=== PATIENT | male | born 1960 | race Caucasian/White ===

== ENCOUNTER 2016-12-21 22:40 | Observation (INO) | payer MEDICARE ==
[2016-12-21] VITALS (7 sets, daily range): BP systolic 124–153; BP diastolic 71–91; PULSE 70–85; RESP 16–18; TEMP 99.3; O2SAT 95–97
[~2016-12-21] VITALS: Ht 177.8 cm; Wt 82.0 kg
[~2016-12-21 22:40] MED LIST: ALBU1AER INH; ALBU8I INH; HYDR-3535 PO; LORTA10 PO; MEDR4PAK3 PO; TIZA4 PO
--- NOTE | 2016-12-21 22:45 | PD ---
Physical Exam Date Seen by Provider: Dec 21, 2016 Time Seen by Provider: 22:43 Narrative 56 yo male here for left sided chest pain. Was going to be seen by a specialist but has not been able to get a referral. Has had chest pains on/off for a month. No history of ACS. SOB with pain. PCP is aware but has not been able to send patient to director of career services. Diaphoresis per patient. Vitals are stable in triage. Awaiting Bed placement. Data Data Last Documented VS Vital Signs Date Time Temp Pulse Resp B/P Pulse Ox O2 Delivery O2 Flow Rate FiO2 12/21/16 22:42 99.3 75 16 153/87 97 Room Air [facility] Medical Record Reviewed: Yes Supervised Visit with FRANKIE: No Lupillo Cordero Dec 21, 2016 22:45
[2016-12-21] MEDS ORDERED: SODIUM CHLORID 0.9% 500 ML INJ 500 ML IV ONE (23:15)
[2016-12-21] MEDS ORDERED: ASPIRIN 81 MG CHEW TAB PO ONE (23:15)
[2016-12-21] MEDS ORDERED: SODIUM CHLORIDE 0.9% FLUSH 10 ML FLUSH IVF PRN (23:15)
[2016-12-21] MEDS: NITROGLYCERIN 0.4 MG SL 25 TABS/BTL SL SCH ×3 (23:31→23:48)
[2016-12-21 23:37] LABS: AUTOMATED NEUTROPHIL # 8.8 TH/MM3 (1.8-7.7); BASOPHIL # 0.1 TH/MM3 (0-0.2); BASOPHIL % 0.9 % (0.0-2.0); EOSINOPHIL # 0.1 TH/MM3 (0-0.4); EOSINOPHIL % 0.7 % (0.0-4.0); HEMATOCRIT 42.6 % (39.0-51.0); HEMO FLAGS DIFF FINAL; LYMPH % 23.3 % (9.0-44.0); LYMPHOCYTE # 3.1 TH/MM3 (1.0-4.8); MEAN CELL VOLUME 92.9 FL (80.0-100.0); MEAN CORPUSCULAR HEMOGLOBIN 32.3 PG (27.0-34.0); MEAN CORPUSCULAR HGB CONC 34.8 % (32.0-36.0); MONO % 7.8 % (0.0-8.0); NEUT % 67.3 % (16.0-70.0); PLATELET COUNT 226 TH/MM3 (150-450); RED BLOOD COUNT 4.59 MIL/MM3 (4.50-5.90); RED CELL DISTRIBUTION WIDTH 13.6 % (11.6-17.2); WHITE BLOOD COUNT 13.1 TH/MM3 (4.0-11.0)
--- NOTE | 2016-12-21 23:46 | RADRPT ---
EXAM DATE/TIME: 12/21/2016 23:16 [facility] COMPARISON: No previous studies available for comparison. INDICATIONS : Chest pain. MEDICAL HISTORY : None. SURGICAL HISTORY : Right total shoulder replacement ENCOUNTER: Initial ACUITY: 1 day PAIN SCORE: 7/10 LOCATION: Bilateral chest FINDINGS: No infiltrate, effusion or pneumothorax demonstrated. There is evidence of upper lobe predominant emp hysema. Heart size within normal limits. CONCLUSION: No evidence of acute cardiopulmonary disease. Trent Borges MD on December 21, 2016 at 23:44 Board Certified Radiologist. This report was verified electronically.
[2016-12-21 23:50] LABS: APTT (PATIENT) 26.7 SEC (24.3-30.1); INTERNATIONAL NORMALIZED RATIO 0.9 RATIO; PROTHROMBIN TIME - PATIENT 10.2 SEC (9.8-11.6)
[2016-12-21 23:59] LABS: ANION GAP 9 MEQ/L (5-15); AST (GOT) 21 U/L (15-37); BICARBONATE 24.2 MEQ/L (21.0-32.0); BLOOD UREA NITROGEN 19 MG/DL (7-18); CHLORIDE 109 MEQ/L (98-107); GLOMERULAR FILTRATION RATE 82 ML/MIN (>89); POTASSIUM 3.7 MEQ/L (3.5-5.1); SODIUM (NA) 142 MEQ/L (136-145)
[2016-12-22] LABS: ALT (GPT) 31 U/L (12-78)
[2016-12-22 00:04] LABS: ALKALINE PHOSPHATASE 67 U/L (45-117); TOTAL BILIRUBIN ADULT 0.5 MG/DL (0.2-1.0)
[2016-12-22] MEDS ORDERED: ACETAMINOPHEN 325 MG TAB PO ONE (00:15)
[2016-12-22 00:23] VITALS: BP 122/62; PULSE 77; RESP 17; O2SAT 95
[2016-12-22] MEDS ORDERED: MULTTAB68 PO (00:30)
[2016-12-22] MEDS ORDERED: HYDR-3583 PO (00:30)
[2016-12-22] MEDS ORDERED: VENTAER INH (00:30)
--- NOTE | 2016-12-22 00:50 | PD ---
HPI Chief Complaint: Chest Pain Time Seen by Provider: 23:03 Travel History International Travel<30 days: No Contact w/Intl Traveler<30days: No Traveled to known affect area: No History of Present Illness HPI So 56 old man who presents to the emergency department complaining of chest pain. Symptoms been intermittent for a month or so but getting steadily worse. He states today he states symptoms were severe. They're mostly over the left chest, but today started radiating into the left arm. They seem to be worse with exertion. There little bit pleuritic. He denies any previous history of heart problems. He's had a stress test before, but it was in the remote past. He saw his primary doctor is referring the freight flagman but he has not been able to get in to see them yet. His a history of some indigestion and reflux and is been a little bit worse recently. No history of gallbladder problems. No other complaints. History Past Medical History Narrative Medical Hyperlipidemia Asthma Tetanus Vaccination: < 5 Years Social History Alcohol Use: Yes (occasionally) Tobacco Use: Yes (2-3 ppd) Allergies-Medications (Allergen,Severity, Reaction): Coded Allergies: Flu Vaccine (Verified Allergy, Severe, HIVES, 12/21/16) Penicillin (Verified Allergy, Severe, HIVES, 12/21/16) Reported Meds & Prescriptions Reported Meds & Active Scripts Active Reported Psy-Dpxedw-Mlvzn (Multivitamin) 1 Each Tablet 1 Tab PO DAILY Ventolin Hfa 18 GM Inh (Albuterol Sulfate) 90 Mcg/Act Aer 2 Puff INH Q4-6H PRN Hydrocodone-Acetaminophen 10-325 mg Tab 1 Tab PO Q6H PRN Review of Systems Except as stated in HPI: all other systems reviewed are Neg Physical Exam Narrative GENERAL: Well-appearing 56 old man, no acute distress. SKIN: Focused skin assessment warm/dry. HEAD: Atraumatic. Normocephalic. EYES: Pupils equal and round. No scleral icterus. No injection or drainage. ENT: No nasal bleeding or discharge. Mucous membranes pink and moist. NECK: Trachea midline. No JVD. CARDIOVASCULAR: Regular rate and rhythm. No murmur appreciated. RESPIRATORY: No accessory muscle use. Clear to auscultation. Breath sounds equal bilaterally. GASTROINTESTINAL: Abdomen soft, non-tender, nondistended. Hepatic and splenic margins not palpable. MUSCULOSKELETAL: No obvious deformities. No clubbing. No cyanosis. No edema. NEUROLOGICAL: Awake and alert. No obvious cranial nerve deficits. Motor grossly within normal limits. Normal speech. PSYCHIATRIC: Appropriate mood and affect; insight and judgment normal. Data Data Last Documented VS Vital Signs Date Time Temp Pulse Resp B/P Pulse Ox O2 Delivery O2 Flow Rate FiO2 12/22/16 00:23 77 17 122/62 95 Room Air 12/21/16 22:42 99.3 Orders Electrocardiogram (12/21/16 23:) Complete Blood Count With Diff (12/21/16 23:11) Comprehensive Metabolic Panel (12/21/16 23:11) Magnesium (Mg) (12/21/16 23:) Prothrombin Time / Inr (Pt) (12/21/16:) Act Partial Throm Time (Ptt) (12/21/16 23:11) Troponin I (12/21/16 23:11) Chest, Single Ap (12/21/16 23:11) Ecg Monitoring (12/21/16 23:11) Bilateral Bp Monitoring (12/21/16:) Iv Access Insert/Monitor (12/21/16 23:) Oximetry (12/21/16 23:11) Oxygen Administration (12/21/16 23:11) Aspirin Chew (Aspirin Chew) (12/21/16 23:15) Sodium Chloride 0.9% Flush (Ns Flush) (12/21/16 23:15) Nitroglycerin Sl (Nitrostat Sl) (12/21/16 23:15) Sodium Chlorid 0.9% 500 Ml Inj (Ns 500 M (12/21/16 23:15) Acetaminophen (Tylenol) (12/22/16 00:15) Labs Laboratory Tests Test 12/21/16 23:25 White Blood Count 13.1 TH/MM3 Red Blood Count 4.59 MIL/MM3 Hemoglobin 14.8 GM/DL Hematocrit 42.6 % Mean Corpuscular Volume 92.9 FL Mean Corpuscular Hemoglobin 32.3 PG Mean Corpuscular Hemoglobin 34.8 % Concent Red Cell Distribution Width 13.6 % Platelet Count 226 TH/MM3 Mean Platelet Volume 8.5 FL Neutrophils (%) (Auto) 67.3 % Lymphocytes (%) (Auto) 23.3 % Monocytes (%) (Auto) 7.8 % Eosinophils (%) (Auto) 0.7 % Basophils (%) (Auto) 0.9 % Neutrophils # (Auto) 8.8 TH/MM3 Lymphocytes # (Auto) 3.1 TH/MM3 Monocytes # (Auto) 1.0 TH/MM3 Eosinophils # (Auto) 0.1 TH/MM3 Basophils # (Auto) 0.1 TH/MM3 CBC Comment DIFF FINAL Differential Comment Prothrombin Time 10.2 SEC Prothromb Time International 0.9 RATIO Ratio Activated Partial 26.7 SEC Thromboplast Time Sodium Level 142 MEQ/L Potassium Level 3.7 MEQ/L Chloride Level 109 MEQ/L Carbon Dioxide Level 24.2 MEQ/L Anion Gap 9 MEQ/L Blood Urea Nitrogen 19 MG/DL Creatinine 0.96 MG/DL Estimat Glomerular Filtration 82 ML/MIN Rate Random Glucose 107 MG/DL Calcium Level 8.5 MG/DL Magnesium Level 2.0 MG/DL Total Bilirubin 0.5 MG/DL Aspartate Amino Transf 21 U/L (AST/SGOT) Alanine Aminotransferase 31 U/L (ALT/SGPT) Alkaline Phosphatase 67 U/L Troponin I LESS THAN 0.02 NG/ML Total Protein 6.4 GM/DL Albumin 3.5 GM/DL [facility] Medical Decision Making Medical Screen Exam Complete: Yes Emergency Medical Condition: Yes Interpretation(s) My review of EKG: Normal sinus rhythm at a rate of 75, little bit a left axis deviation with an incomplete right bundle, no definite evidence of acute ischemia. LABS: CBC remarkable for mild leukocytosis. CMP is generally unremarkable. BUN is a little bit elevated. Troponin negative. Coags unremarkable. Chest x-ray negative Differential Diagnosis ACS, GERD, reflux, pleurisy, PE, dissection, other Narrative Course Medical decision-making 56-year-old man who presents to the emergency department complaining of intermittent chest pain is worse over the past month or so. Symptoms are moderately concerning for ACS with exertional component, gradually worsening. Overall he looks well. His EKG is nondiagnostic. Initial troponin is negative. We'll recommend admission to the chest pain Center. Diagnosis Primary Impression: Chest pain Admitting Information Admitting Physician Requests: Dewayne Mg MD Dec 22, 2016 00:49
[2016-12-22] MEDS ORDERED: SODIUM CHLORIDE 0.9% FLUSH 10 ML FLUSH IV FLUSH PRN (01:00)
[2016-12-22 01:58] VITALS: BP 113/66
[2016-12-22 02:56] VITALS: PULSE 64
[2016-12-22 03:06] VITALS: BP 121/71; PULSE 68; RESP 18; TEMP 97.9; O2SAT 98
[2016-12-22 03:18] LABS: CREATINE KINASE 138 U/L (39-308)
[2016-12-22 03:30] LABS: CKMB 1.1 NG/ML (0.5-3.6)
[2016-12-22] MEDS ORDERED: ALBUTEROL SULFATE 90 MCG/ACT HFA 18 GM INHALER INH PRN (03:30)
[2016-12-22 06:56] LABS: CREATINE KINASE 131 U/L (39-308)
[2016-12-22 07:10] LABS: CKMB 0.9 NG/ML (0.5-3.6)
[2016-12-22] MEDS ORDERED: NITROGLYCERIN 0.4 MG SL 25 TABS/BTL SL PRN (07:30)
[2016-12-22] MEDS ORDERED: ONDANSETRON HCL 4 MG/2 ML VIAL IV PRN (07:30)
[2016-12-22] MEDS ORDERED: ACETAMINOPHEN 500 MG CPLT PO PRN (07:30)
[2016-12-22 08:00] VITALS: BP 116/75; PULSE 69; PULSE 73; RESP 20; TEMP 96.3; O2SAT 97; O2SAT 98
[2016-12-22] MEDS ORDERED: RESP: ALBUTEROL 2.5 MG/IPRATROPIUM 0.5 MG NEB (SCH) NEB ONE (08:00)
[2016-12-22] MEDS ORDERED: RESP: ALBUTEROL 2.5 MG/3 ML NEB (PRN) NEB (08:00)
[2016-12-22] MEDS: RESP: ALBUTEROL 2.5 MG/3 ML NEB (SCH) INH ×2 (08:00→12:36)
--- NOTE | 2016-12-22 08:00 | HHI.HP ---
[facility] Primary Care Physician Dr. Braga Chief Complaint Chest pain History of Present Illness 56-year-old patient with history of asthma presents to emergency room for further evaluation of chest pain. Onset over one month ago. Location left anterior chest. Characterized as sharp. Duration constant waxing and waning in intensity. Radiation to left arm stating "my left arm was tingling." Associated symptoms include diaphoresis and it "hurts to take a deep breath." No nausea or vomiting. No known precipitating factors. Relieving factor laying down and resting. States he spoke his primary doctor regarding chest discomfort and is waiting for a specialist, although he is unsure what type specialist. Yesterday's chest pain episode more severe, therefore he came to the emergency room for further evaluation. Also state he has been using albuterol rescue inhaler every 1-2 hours for over a month and has not told primary care provider on his frequent use. Continues to smoke 13 pack daily. Review of Systems General: No fatigue,weakness, fever, chills, recent illness, or change in appetite. Other than what is stated above has been in his normal state of health including chronic back pain. HEENT: Reports daily severe frontal headache for 3 months. No current EARL. Reports dysphasia "for a long time" chokes on pills and certain foods, no apparent problem with liquids. No vision changes, no nasal congestion or drainage. Also reports one year of intermittent right temporal and right neck pain. States he has reported problem to his PCP and is waiting for an ENT appointment. CV: As stated above. Chest pain reproducible upon palpation. No palpitations or dizziness. RESP: Hurts to take a deep breath. No current SOB. Reports using his rescue inhaler 1-2 hours/daily over one month when he feels short of breath or wheezes. Denies hemoptysis. History of asthma since age 7. Follows with a parachute taper. Reports he has not told primary care provider or parachute taper about his frequent use of rescue inhalers. After education provided, patient endorses he cannot tolerate inhaled corticosteroids or any other long-acting inhaler. GI: No nausea, vomiting, bowel changes, or diarrhea. Intermittent chronic constipation he relates to pain medications. No pain, distention, melena, or blood in the stool. No unintentional weight gain or weight loss. : No dysuria, urgency, frequency, hematuria, or history of kidney stones EXT: No dependent edema. MS: Chronic low back pain, follows with pain management. Receives epidural injections routinely. Bilateral lower leg chronic "shooting pain related to my back." No change in his chronic back pain or ROM. NEURO: No change in memory, dizziness, difficulty with balance, LOC, motor/ sensory deficits PSYCH: No anxiety, depression, or suicidal ideation. Reports situational stress regarding chronic back pain. SKIN: No rashes, no concerning lesions Past Family Social History Allergies: Coded Allergies: Flu Vaccine (Verified Allergy, Severe, HIVES, 12/21/16) Penicillin (Verified Allergy, Severe, HIVES, 12/21/16) Past Medical History Asthma, chronic low back pain, sleep apnea (dose not wear CPAP mask as ordered, states he sent machine back) Past Surgical History Tonsillectomy, right shoulder surgery Reported Medications Active Reported Dfu-Udxunk-Xvlci (Multivitamin) 1 Each Tablet 1 Tab PO DAILY Ventolin Hfa 18 GM Inh (Albuterol Sulfate) 90 Mcg/Act Aer 2 Puff INH Q4-6H PRN Hydrocodone-Acetaminophen 10-325 mg Tab 1 Tab PO Q6H PRN Active Ordered Medications Current Medications Medications (Trade) Dose Ordered Sig/Charla Route Start Time Stop Time Status Last Admin (Ventolin Hfa Inh) 2 puff Q4H PRN INH 12/22/16 03:30 12/22/16 03:34 (Tylenol) 500 mg Q4H PRN PO 12/22/16 07:30 (Zofran Inj) 4 mg Q6H PRN IV 12/22/16 07:30 (Nitrostat Sl) 0.4 mg Q5M PRN SL 12/22/16 07:30 (Aspirin) 325 mg DAILY PO 12/23/16 09:00 Family History Unknownpatient adopted Social History No known diabetes, hyperlipidemia, hypertension, or coronary artery disease. Lifelong smoker. Smokes 13 pack/daily. Occasional alcohol 3 days/weekly. Denies any recreational drug use. 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 Past cardiac testing Remote exercise treadmill testunremarkable. Physical Exam Vital Signs Vital Signs Date Time Temp Pulse Resp B/P Pulse Ox O2 Delivery O2 Flow Rate FiO2 12/22/16 03:06 97.9 68 18 121/71 98 12/22/16 02:56 64 12/22/16 01:58 68 18 113/66 95 12/22/16 00:23 77 17 122/62 95 Room Air 12/21/16 23:47 82 18 138/71 97 Room Air 12/21/16 23:37 82 18 134/71 95 Room Air 12/21/16 23:31 85 18 136/80 96 Room Air 12/21/16 23:18 74 18 144/91 97 Room Air 12/21/16 23:17 85 18 124/84 97 Room Air 12/21/16 23:05 70 18 124/84 97 Room Air 12/21/16 23:05 97 Room Air 12/21/16 22:42 99.3 75 16 153/87 97 Room Air Physical Exam GENERAL: Alert WN, WD, NAD, male who appears older than stated age. Smells of tobacco. HEAD: NC, AT EYES: Sclera clear, conjunctiva without injection, pupils equal and round ENT: Mucous membranes pink and moist, no nasal discharge or bleeding NECK: Supple, no masses, trachea midline CV: RRR, distant heart tones without murmur, rub, gallop. no JVD, S1-S2 no S3- S4. No carotid bruits. RESP: Expiratory wheeze throughout bilateral. No crackles or rhonchi. Symmetrical chest rise, nonlabored, able to speak in full sentences. ABD: Soft, NT, ND, no masses, positive bowel tones EXT: Pulses +24, no dependent edema MS: Normal tone 4 extremities, no obvious deformities, full range of motion. Left anterior chest wall pain reproducible with palpation. NEURO: CN II through CN XII grossly intact, motor strength 5/5, gait WNL PSYCH: A+O 3, flat affect, appropriate speech, appropriate mood and affect, insight and judgment SKIN: Normal turgor, normal texture, no lesions, no rashes, sluggish capillary refill Laboratory Laboratory Tests Test 12/21/16 12/22/16 12/22/16 23:25 02:30 05:45 White Blood Count 13.1 Red Blood Count 4.59 Hemoglobin 14.8 Hematocrit 42.6 Mean Corpuscular Volume 92.9 Mean Corpuscular Hemoglobin 32.3 Mean Corpuscular Hemoglobin 34.8 Concent Red Cell Distribution Width 13.6 Platelet Count 226 Mean Platelet Volume 8.5 Neutrophils (%) (Auto) 67.3 Lymphocytes (%) (Auto) 23.3 Monocytes (%) (Auto) 7.8 Eosinophils (%) (Auto) 0.7 Basophils (%) (Auto) 0.9 Neutrophils # (Auto) 8.8 Lymphocytes # (Auto) 3.1 Monocytes # (Auto) 1.0 Eosinophils # (Auto) 0.1 Basophils # (Auto) 0.1 CBC Comment DIFF FINAL Differential Comment Prothrombin Time 10.2 Prothromb Time International 0.9 Ratio Activated Partial 26.7 Thromboplast Time Sodium Level 142 Potassium Level 3.7 Chloride Level 109 Carbon Dioxide Level 24.2 Anion Gap 9 Blood Urea Nitrogen 19 Creatinine 0.96 Estimat Glomerular Filtration 82 Rate Random Glucose 107 Calcium Level 8.5 Magnesium Level 2.0 Total Bilirubin 0.5 Aspartate Amino Transf 21 (AST/SGOT) Alanine Aminotransferase 31 (ALT/SGPT) Alkaline Phosphatase 67 Troponin I LESS THAN 0.02 LESS THAN 0.02 LESS THAN 0.02 Total Protein 6.4 Albumin 3.5 Total Creatine Kinase 138 131 Creatine Kinase MB 1.1 0.9 Result Diagram: 12/21/16232412/21/162324 Imaging Last Impressions Chest X-Ray 12/21/162310 Signed Impressions: Service Date/Time: Wednesday, December 21, 2016 23:16 - CONCLUSION: No evidence of acute cardiopulmonary disease. Trent Borges MD Course EKGs Normal sinus rhythm, incomplete right bundle branch block Assessment and Plan Assessment and Plan #1 Atypical chest painadmitted to chest pain center. Ruled out with serial EKGs and cardiac enzymes. Seen and evaluated by Dr. Giovanny Martin. Will proceed with chemical stress test after respiratory treatments given. Patient is agreeable to plan of care. If stress test unremarkable, discharge with follow up with PCP. #2 Asthmaalbuterol nebulizers every 6 hours and every 2 when necessary, first dose now. Risks of taking albuterol inhalers more frequently then prescribed explained. Stressed importance of following up with PCP and parachute taper and notifying PCP of frequent use of rescue inhalers. #3 Tobacco use-Strongly encouraged and stressed importance of tobacco cessation. Discussed and counseled patient to quit smoking. Jade Henderson Dec 22, 2016 08:00
[2016-12-22] MEDS ORDERED: ASPIRIN 325 MG TAB PO SCH (09:00)
[2016-12-22] MEDS ORDERED: ACETAMINOPHEN/HYDROcodone 325 MG/10 MG TAB PO ONE (10:00)
[2016-12-22] MEDS ORDERED: REGADENOSON INJ 0.4 MG/5 ML SYR ONE (11:01)
[2016-12-22 12:00] VITALS: BP 127/76; PULSE 62; RESP 20; TEMP 97.3; O2SAT 96
--- NOTE | 2016-12-22 12:45 | RADRPT ---
EXAM DATE/TIME: 12/22/2016 10:26 [facility] COMPARISON: No previous studies available for comparison. INDICATIONS : Mid chest pain radiating to the left arm for one month. Angina. DOSE: 25.8 mCi Tc99m Myoview at stress. 8.1 mCi Tc99m Myoview at rest. 0.4 mg Lexiscan STRESS SYMPTOMS: Nausea. EJECTION FRACTION: > 70% MEDICAL HISTORY : Asthma. SURGICAL HISTORY : Right shoulder. ENCOUNTER: Initial ACUITY: 1 month PAIN SCALE: 4/10 LOCATION: Midsternal chest TECHNIQUE: The patient underwent pharmacologic stress with infusion of prescribed dose. Continuous ECG tracing was monitored during stress. Gated SPECT imaging was performed after stress and conventional SPECT i maging was performed at rest. The examination was performed on a SPECT/CT scanner, both attenuation and non-corrected datasets were reviewed. FINDINGS: DISTRIBUTION: The maximum perfused segment at stress is in the lateral wall. PERFUSION STUDY: The pattern of perfusion at stress is within normal limits. GATED STUDY: There is intact wall motion and thickening without hypokinetic or dyskinetic segments. CONCLUSION: No reversible defects observed to suggest acute ischemia. RISK CATEGORY: Low Mynor Davis Jr., MD on December 22, 2016 at 12:38 Board Certified Radiologist. This report was verified electronically.
--- NOTE | 2016-12-22 13:22 | HHI.DCPOC ---
Discharge Care Plan Diagnosis: (1) Musculoskeletal chest pain (2) Tobacco abuse Goals to Promote Your Health * To prevent worsening of your condition and complications * To maintain your health at the optimal level Directions to Meet Your Goals Take your medications as prescribed Follow your dietary instruction Follow activity as directed Keep your appointments as scheduled Take your immunizations and boosters as scheduled If your symptoms worsen call your PCP, if no PCP go to Urgent Care Center or Emergency Room Smoking is Dangerous to Your Health. Avoid second hand smoke Call the 24-hour hour crisis hotline for domestic abuse at Jade Henderson Dec 22, 2016 13:22
[2016-12-23] MEDS ORDERED: ASPIRIN 325 MG TAB PO SCH (09:00)
--- NOTE | 2016-12-23 13:25 | EKG ---
Date Performed: 12/21/2016 Time Performed: 23:10:50 PTAGE: 56 years EKG: Sinus rhythm BORDERLINE LEFT AXIS DEVIATION BORDERLINE ECG NO PREVIOUS TRACING DOCTOR: Giovanny Martin Interpretating Date/Time 12/23/2016 13:20:49
--- NOTE | 2016-12-23 13:25 | EKG ---
Date Performed: 12/22/2016 Time Performed: 06:00:05 PTAGE: 56 years EKG: Sinus rhythm BORDERLINE ECG PREVIOUS TRACING : 12/22/2016 02.39 Since previous tracing, no significant change noted DOCTOR: Giovanny Martin Interpretating Date/Time 12/23/2016 13:20:24
--- NOTE | 2016-12-23 13:25 | EKG ---
Date Performed: 12/22/2016 Time Performed: 02:39:15 PTAGE: 56 years EKG: Sinus rhythm BORDERLINE ECG PREVIOUS TRACING : 12/21/2016 23.10 Since previous tracing, no significant change noted DOCTOR: Giovanny Martin Interpretating Date/Time 12/23/2016 13:20:38
--- NOTE | 2016-12-23 13:26 | TR ---
Date Performed: 12/22/2016 Time Performed: 11:12:07 DOCTOR: Giovanny Martin DRUG LIST: CLINICAL HISTORY: CHEST PAIN REASON FOR TEST: REASON FOR ENDING: OBSERVATION: CONCLUSION: Lexiscan stress test was performed under standard four minute protocol. Radionuclid e was injected one minute prior to ending the test. No electrocardiographic abormalities were present to suggest ischemia. Nuclear imaging and interpretation are pending. COMMENTS:
== END 2016-12-22 14:57 | disposition home or self-care (01) ==
LOC: NEPC 22:40 → NEDA 12-22 01:02 → NEPHCDU 12-22 02:04
PROVIDERS: ADMIT Internal Medicine Interventional Cardiology; ATTEND Internal Medicine Interventional Cardiology
DX: R07.89 Other chest pain (principal); F17.200 Nicotine dependence, unspecified, uncomplicated; R61 Generalized hyperhidrosis; R20.2 Paresthesia of skin; G47.30 Sleep apnea, unspecified; J45.909 Unspecified asthma, uncomplicated; Z71.6 Tobacco abuse counseling; E78.5 Hyperlipidemia, unspecified
CPT/HCPCS: 71010; 78452; 80053; 82550; 82552; 83735; 84484; 85025; 85610; 85730; 93005; 93017; 94640; 94664; 99285; A9502; G0378; J2785; J7040; J7613

== ENCOUNTER 2017-03-11 22:29 | Emergency (ER) | payer MEDICARE ==
[~2017-03-11] VITALS: Ht 177.8 cm; Wt 84.4 kg
[~2017-03-11 22:29] MED LIST changes: -ALBU1AER INH; -ALBU8I INH; -HYDR-3535 PO; +HYDR-3583 PO; -LORTA10 PO; -MEDR4PAK3 PO; +MULTTAB68 PO; -TIZA4 PO; +VENTAER INH
[2017-03-11 22:37] VITALS: BP 124/74; PULSE 90; RESP 16; TEMP 97.9; O2SAT 95
[2017-03-11] MEDS ORDERED: BACT800T5 PO (22:55)
[2017-03-11] MEDS ORDERED: DOXY100C PO (22:55)
--- NOTE | 2017-03-11 22:55 | PD ---
HPI Chief Complaint: Skin Problem Time Seen by Provider: 22:50 Travel History International Travel<30 days: No Contact w/Intl Traveler<30days: No Traveled to known affect area: No History of Present Illness HPI The patient states 2 weeks ago he was diagnosed with MRSA and given antibiotics , likely doxycycline and Bactrim DS which cleared up his infection on his left eyebrow. He states the infection cause considerable swelling and had to be drained. He completed the antibiotics 3 days ago and today he noticed that the spot where it was infected started slight swelling. He denies any fever. The antibiotics were given to him in [place]. PFSH Past Medical History Asthma: Yes Blood Disorders: No Heart Rhythm Problems: No Cancer: No Cardiac Catheterization: No Cardiovascular Problems: Yes (CHEST PAIN) High Cholesterol: No Chest Pain: Yes Congestive Heart Failure: No COPD: Yes Diabetes: No Diminished Hearing: No Endocrine: No Gastrointestinal Disorders: Yes GERD: Yes Genitourinary: No Immune Disorder: No Musculoskeletal: Yes (Arthritis, Bursitis, Scoliosis, DJD, Tendonitis) Neurologic: No Psychiatric: No (PT DENIES) Reproductive: No Respiratory: Yes Sleep Apnea: Yes Thyroid Disease: No Past Surgical History Body Medical Devices: HARDWARE R SHOULDER (PT STATES REPLACEMENT) Coronary Artery Bypass Graft: No Tonsillectomy: Yes Other Surgery: Yes (right shoulder replacement) Social History Alcohol Use: Yes (occasionally) Tobacco Use: Yes (2-3 ppd) Substance Use: No Allergies-Medications (Allergen,Severity, Reaction): Coded Allergies: Influenza Virus Vaccines (Unverified Allergy, Severe, HIVES, 03/11/17) penicillin G (Unverified Allergy, Severe, HIVES, 03/11/17) Reported Meds & Prescriptions Reported Meds & Active Scripts Active Reported Wcc-Lrpaoh-Lqgfx (Multivitamin) 1 Each Tablet 1 Tab PO DAILY Ventolin Hfa 18 GM Inh (Albuterol Sulfate) 90 Mcg/Act Aer 2 Puff INH Q4-6H PRN Hydrocodone-Acetaminophen 10-325 mg Tab 1 Tab PO Q6H PRN Review of Systems Except as stated in HPI: all other systems reviewed are Neg Physical Exam Narrative GENERAL: The patient is alert, oriented 3 in minimal apparent distress with his left eyebrow discomfort. His vital signs are normal. SKIN: Focused skin assessment warm/dry. There is minimal swelling present on the left eyebrow. There is a small scar, apparently where it was incised and drained and a drain put in. No fluctuance is seen. HEAD: Atraumatic. Normocephalic. EYES: Pupils equal and round. No scleral icterus. No injection or drainage. ENT: No nasal bleeding or discharge. Mucous membranes pink and moist. NECK: Trachea midline. No JVD. CARDIOVASCULAR: Regular rate and rhythm. No murmur appreciated. RESPIRATORY: No accessory muscle use. Clear to auscultation. Breath sounds equal bilaterally. GASTROINTESTINAL: Abdomen soft, non-tender, nondistended. Hepatic and splenic margins not palpable. MUSCULOSKELETAL: No obvious deformities. No clubbing. No cyanosis. No edema. NEUROLOGICAL: Awake and alert. No obvious cranial nerve deficits. Motor grossly within normal limits. Normal speech. PSYCHIATRIC: Appropriate mood and affect; insight and judgment normal. Data Data Last Documented VS Vital Signs Date Time Temp Pulse Resp B/P (MAP) Pulse Ox O2 Delivery O2 Flow Rate FiO2 03/11/17 22:37 97.9 90 16 124/74 (91) 95 MDM Medical Decision Making Medical Screen Exam Complete: Yes Emergency Medical Condition: Yes Medical Record Reviewed: Yes Differential Diagnosis Cellulitis, abscess, contact dermatitis Narrative Course The patient has some minimal cellulitis on the left eyebrow. We will repeat the antibiotics, Septra and doxycycline and he should put warm compresses at least twice daily for 30 minutes to the area. Diagnosis Primary Impression: Cellulitis, face Med/Other Pt SpecificInfo: Prescription(s) given Scripts Doxycycline Hyclate (Doxycycline Hyclate) 100 Mg Cap 100 MG PO BID for Infection, #20 CAP 0 Refills Prov: Laz Rubio MD 03/11/17 Sulfamethoxazole-Trimethoprim (Bactrim DS) 800-160 Mg Tab 1 TAB PO BID for Infection, #20 TAB 0 Refills Prov: Laz Rubio MD 03/11/17 Disposition: 01 DISCHARGE HOME Condition: Stable Laz Rubio MD Mar 11, 2017 22:55
[2017-03-11] MEDS ORDERED: DOXYCYCLINE HYCLATE 100 MG CAP PO ONE (23:00)
[2017-03-11] MEDS ORDERED: SULFAMETHOXAZOLE-TRIMETHOPRIM DS 800-160 MG TAB PO ONE (23:00)
[2017-03-11 23:21] VITALS: BP 124/74; TEMP 97.9
== END 2017-03-11 23:28 | disposition home or self-care (01) ==
LOC: PHED 22:29
DX: L03.211 Cellulitis of face (principal); Z88.0 Allergy status to penicillin
CPT/HCPCS: 99284